=== PATIENT | female | born 1980 | race American Indian/Alaskan Native ===

== ENCOUNTER 2019-05-25 10:23 | Observation (INO) | payer MEDICAID ==
[2019-05-23 09:39] LABS: Basophils # (Auto) 0.1 K/mm3 (0.0-0.1); Basophils % (Auto) 1.5 % (0.0-1.8); Eosinophils # (Auto) 0.1 K/mm3 (0.0-0.4); Eosinophils % (Auto) 2.3 % (0.0-4.3); Hematocrit 37.4 % (30.3-42.9); Hemoglobin 12.5 gm/dl (10.1-14.3); Lymphocytes # (Auto) 2.2 K/mm3 (1.2-5.4); Lymphocytes % (Auto) 37.6 % (13.4-35.0); Mean Corpuscular HGB Conc 34 % (30-34); Mean Corpuscular Volume 85 fl (79-97); Monocytes # (Auto) 0.5 K/mm3 (0.0-0.8); Monocytes % (Auto) 8.8 % (0.0-7.3); Platelet Count 300 K/mm3 (140-440); Red Blood Count 4.42 M/mm3 (3.65-5.03); Red Cell Distribution Width 13.1 % (13.2-15.2)
--- NOTE | 2019-05-23 09:48 | Anesthesia Consultation ---
Anesthesia Consult and Med Hx Date of service: 05/23/19 - Airway Anesthetic Teeth Evaluation: Good ROM Head & Neck: Adequate Mental/Hyoid Distance: Adequate Mallampati Class: Class II Intubation Access Assessment: Good - Pulmonary Exam CTA: Yes - Cardiac Exam Cardiac Exam: RRR - Pre-Operative Health Status ASA Pre-Surgery Classification: ASA2 Proposed Anesthetic Plan: General Nerve Block: TAP Block - Pulmonary Hx Smoking: Yes - Central Nervous System Hx Psychiatric Problems: No - Other Systems Hx Cancer: No - Additional Comments Anesthesia Medical History Comments: Smoker , GERD for GA
[~2019-05-25 10:23] MED LIST: CELECOXIB 200 MG CAP PO NR; GABAPENTIN 300 MG CAP PO NR; MIDAZOLAM 2 MG/2 ML INJ IV NR; fentaNYL 100 MCG/2 ML INJ IV NR
[2019-05-25] MEDS: LACTATED RINGERS 1,000 ML IV SCH ×2 (11:05→20:50)
[2019-05-25] MEDS ORDERED: CELECOXIB 200 MG CAP PO NR (11:15)
[2019-05-25] MEDS ORDERED: fentaNYL 100 MCG/2 ML INJ IV NR (11:15)
[2019-05-25] MEDS ORDERED: GABAPENTIN 300 MG CAP PO NR (11:15)
[2019-05-25] MEDS ORDERED: MIDAZOLAM 2 MG/2 ML INJ IV NR (11:15)
--- NOTE | 2019-05-25 11:16 | Anesthesia Day of Surgery ---
Anesthesia Day of Surgery - Day of Surgery Patient Examined: Yes Patient H&P Reviewed: Yes Patient is NPO: Yes
[2019-05-25] MEDS ORDERED: BUPIVACAINE-EPINEPHRINE/PF 0.5%-1:200,000 (30 ML) VIAL INFILTRATI ONE (11:20)
[2019-05-25] MEDS ORDERED: MIDAZOLAM 2 MG/2 ML INJ ONE ×2 (11:25→12:14)
[2019-05-25] MEDS ORDERED: fentaNYL 100 MCG/2 ML INJ ONE (12:14)
[2019-05-25] MEDS ORDERED: LIDOCAINE MPF (2%) 20 MG/1 ML VIAL 5 ML ONE (12:14)
[2019-05-25] MEDS ORDERED: ROCURONIUM 50 MG/5 ML INJ IV ONE (12:14)
[2019-05-25] MEDS ORDERED: PROPOFOL 200 MG/20 ML VIAL IV ONE (12:15)
[2019-05-25] MEDS ORDERED: GLYCOPYRROLATE 0.4 MG/2 ML INJ ONE (12:25)
[2019-05-25] MEDS ORDERED: NEOSTIGMINE 10MG/10 ML INJ MDV ONE (12:25)
[2019-05-25] MEDS ORDERED: METOCLOPRAMIDE 10 MG/2 ML INJ ONE (12:25)
[2019-05-25] MEDS ORDERED: KETOROLAC 30 MG/1 ML INJ ONE (12:25)
[2019-05-25] MEDS ORDERED: ONDANSETRON 4 MG/2 ML INJ ONE (12:25)
[2019-05-25] MEDS ORDERED: dexAMETHasone 20 MG/5 ML VIAL ONE (12:25)
[2019-05-25] MEDS ORDERED: NEOMY 40 MG/POLYMYXIN B 200,000 UNITS/ML (GU) AMPULE IR ONE ×2 (12:27→13:37)
[2019-05-25] MEDS ORDERED: ceFAZolin 1 GM VIAL ONE (12:57)
[2019-05-25] MEDS ORDERED: SODIUM CHLORIDE 0.9% 100 ML ONE (12:57)
[2019-05-25] MEDS ORDERED: HYDROmorphone 1 MG/1 ML INJ ONE (13:26)
[2019-05-25] MEDS ORDERED: SODIUM CHLORIDE 0.9% IRR 1,500 ML BOTTLE IR ONE (13:38)
[2019-05-25] MEDS ORDERED: SODIUM CHLORIDE 0.9% IRRIG SOLN 2000 ML IR ONE (13:39)
[2019-05-25] MEDS ORDERED: MEPERIDINE 25 MG/1 ML INJ ONE (16:34)
[2019-05-25] MEDS ORDERED: MEPERIDINE 25 MG/1 ML INJ IV PRN (16:34)
--- NOTE | 2019-05-25 16:52 | Post Operative Note ---
Date of procedure: 05/25/19 Pre-op diagnosis: Pelvic pain , menorrhagia Post-op diagnosis: same (plus possible endometriosis. Path pending.) Findings: Ant uterine fibroid vs generally globular uterus. Normal tubes and ovaries except for some adhesions around the left adnexa. Possible area of endometriotic lesion on the left uterosacral ligament. General abd survey otherwise WNL. Procedure: Robotic hysterectomy, bilateral salpingectomies, excisional peritoneal biopsy Patient taken to the operating room and prepped and draped in the usual fashion. Attention was first turned vaginally for placement of the V care uterine manipulator and the Martinez. The large V care cup was used. The uterus was sounded to 10 cm. Anchoring stitches on the anterior and posterior lips of the cervix were done with 0 Vicryl. The manipulator was placed successfully and without difficulty. Attention was then turned abdominally to the left upper quadrant where 2 fingerbreadths under the costal margin in the midclavicular line and 8 mm incision was made. Veres needle was successfully placed in the in the abdominal cavity and abdomen was appropriately insufflated with CO2 gas. Placement confirmed with the camera. Attention was then turned to placement of the bilateral 8 mm trochars which were placed around 2 fingerbreadths superior and medial to the ASIS on both sides. Both were placed under direct his visualization and done without difficulty. The 12 mm umbilical trocar site was then made and the trocar was also placed under direct visualization without difficulty. Patient was then placed in steep Trendelenburg. The robot was docked into the trocar sites. I broke scrub and proceeded to the [employer]. After the abdomen and pelvis was surveyed attention was first turned to the excisional peritoneal biopsy of the left uterosacral ligament. This is done using out Endo Carlos. The peritoneum around the left uterosacral ligament where there were a few lesion suspicion of endometriosis were excised. Good hemostasis was noted. Attention was then turned to the left adnexal region with the above-noted adhesions were lysed to improve visualization of the adnexa. Attention was first turned to the left side where the fallopian tube was resected from its mesenteric attachments using the vessel sealer. The uterosacral ligament was then clamped cauterized and cut with the vessel sealer. Dissection was then carried to the round ligament which was clamped cauterized and cut with the vessel sealer. This was then done on the right side in the exact same fashion with equal success and good hemostasis. At this point a bladder flap was created. The anterior colpotomy was then made at this point and the V care cup was visualized. The incision was then extended bilaterally. Attention was then turned posteriorly. The posterior peritoneal flap was then created bilaterally. Posterior colpotomy incision was made in the V care cup was visualized. This incision was then extended bilaterally. At this point the tissue on the left side was skeletonized to the uterine vasculature which was clamped cauterized and cut using the vessel sealer. This is then done on the right side in the same fashion. At this point the uterus blanched and the colpotomy was completed 360. At this point the uterus and the tubes were removed vaginally. The vaginal cuff was then reapproximated using a 0V lock running suture. The abdomen was desufflated and good hemostasis noted throughout. Abdomen reinsufflated and the pelvis was well irrigated. At this point Dolly was placed over all areas of dissection. Good hemostasis noted thr oughout. At this point the robot was undocked and I scrubbed back into the case. The vaginal cuff was inspected both visually and on palpation and good hemostasis was noted and good integrity of the vaginal cuff was noted. At this point attention was turned abdominally for closure of the 12 mm trocar site which was done using the Kaushal-Hi device. This done with 0 Vicryl. The other 3 trochars were removed after the abdomen was desufflated. All the trocar sites were closed using 4-0 Monocryl in a subcuticular fashion. Procedure concluded at this point. Patient tolerated the procedure well. COUNTS are correct. Patient taken recovery room in stable condition. Patient had clear urine and had good ureteral peristalsis both at the beginning of the case and at the end of the case. Anesthesia: GETA Surgeon: SANDI SKINNER Estimated blood loss: 50-100ml (100cc) Pathology: list (1) uterus, tubes, cervix. 2) peritoneal biopsy of uterosacral ligament) Specimen disposition: to lab Condition: stable Disposition: PACU
[2019-05-25] MEDS ORDERED: D5W/LACTATED RINGERS 1,000 ML IV SCH (17:00)
[2019-05-25] MEDS: oxyCODONE /ACETAMINOPHEN 5-325MG TAB PO PRN ×2 (17:40→23:31)
--- NOTE | 2019-05-25 20:33 | Post Anesthesia Evaluation ---
- Post Anesthesia Evaluation Patient Participated: Yes Airway Patent: Yes Stable Respiratory Function: Yes Nausea/Vomiting: No Temp > 96.8F: Yes Pain Manageable: Yes Adequeate Hydration: Yes Anesthesia Complications: No
[2019-05-25] MEDS: IBUPROFEN 600 MG TAB PO SCH (20:58)
[2019-05-26 05:20] LABS: Hematocrit 28.5 % (30.3-42.9); Hemoglobin 9.5 gm/dl (10.1-14.3)
[2019-05-26] MEDS: IBUPROFEN 600 MG TAB PO SCH ×4 (07:21→17:23)
[2019-05-26] MEDS: oxyCODONE /ACETAMINOPHEN 5-325MG TAB PO PRN ×2 (10:07→16:13)
--- NOTE | 2019-05-26 11:48 | Progress Note ---
Assessment and Plan - Patient Problems (1) S/P hysterectomy Current Visit: Yes Status: Acute Plan to address problem: Stable POD 1 except for mild anemia. She may also have a right vulvar hematoma. Will give ice for vulvar and repeat Hgn at 1300 to assure stability. IF stable, will d/c home with iron. RTO 2 weeks. Vulva hematoma precautions d/w pt. Subjective - Subjective Date of service: 05/26/19 Principal diagnosis: POD 1 s/p RAH Interval history: Positive OOB, positive void, positive flatus, positive reg diet. No F/C/N /V/SP/SOB. PT only notes vulvar swelling on the right but no VB noted. Objective - Vital Signs Vital Signs: Vital Signs - 12hr 05/26/19 05/26/19 05/26/19 00:54 04:56 09:45 Temperature 97.7 F 98.4 F 98 F Pulse Rate 65 64 83 Respiratory 20 18 18 Rate Blood Pressure 127/81 Blood Pressure 109/65 121/62 [Left] O2 Sat by Pulse 99 98 Oximetry - Exam Abdomen: Present: normal appearance, soft, tenderness (appropriate mild tend. No rebound or guarding. ) Vulva: left: normal (Right vulvar swollen. soft, no erythema. ) - Labs Labs: Abnormal Labs 05/23/19 05/26/19 09:15 04:40 Hgb 9.5 L D Hct 28.5 L D RDW 13.1 L Lymph % (Auto) 37.6 H [place] % (Auto) 8.8 H Laboratory Results - last 24 hr 05/25/19 05/26/19 11:05 04:40 Hgb 9.5 L D Hct 28.5 L D Blood Type O POSITIVE Antibody Screen Negative
[2019-05-26 14:44] LABS: Hematocrit 23.1 % (30.3-42.9); Hemoglobin 7.9 gm/dl (10.1-14.3)
[2019-05-26] MEDS: LACTATED RINGERS 1,000 ML IV SCH (16:14)
--- NOTE | 2019-05-26 16:33 | Cat Scan Report ---
CT abdomen pelvis wo con INDICATION / CLINICAL INFORMATION: r/o bleeding. TECHNIQUE: All CT scans at this location are performed using CT dose reduction for ALARA by means of automated e xposure control. COMPARISON: None available. FINDINGS: No acute findings on limited lower thoracic images. ABDOMEN: Postoperative subcutaneous and intraperitoneal gas. The gallbladder, liver, spleen, pancreas and kidneys are normal. No small bowel distention. Pelvis: High attenuation fluid is seen in the pelvis consistent with hemorrhage. Small gas bubble is identified within the urinary bladder most likely secondary to recent catheteriza tion. Urinary bladder is otherwise normal. No colon abnormalities are identified. Skeletal structures are not remarkable. IMPRESSION: 1. Moderate hypoattenuation pelvic fluid collection consistent with hemorrhage. Signer Name: Erick Billings MD Signed: 05/26/2019 4:29 PM Workstation Name: [id number]
--- NOTE | 2019-05-26 17:09 | Event Note ---
Date: 05/26/19 Hgn repeated and it dropped to 7.9. PT with no CP or SOB. PT is feeling more discomfort with movement though now and more nausea, florinda on the right. CT done and a moderate hemoperitoneum noted. Vitals- stable (see EMR charting) A/P- Pt with POD1 hemoperitoneum and dropping Hgn. As a result, pt consented for surgery. Will proceed with laparoscopy, possible laparotomy, and evacuation of hemoperitoneum. Pt fully consented. Risks, benefits, alternatives d/w pt. PT also agreeable to PRBCs if needed. All questions answered.
[2019-05-26] MEDS ORDERED: SODIUM CHLORIDE 0.9% 500 ML 500 ML IV NR (18:04)
[2019-05-26] MEDS ORDERED: BUPIVACAINE/PF (0.5%) 5 MG/1 ML 30 ML VIAL INFILTRATI ONE (18:22)
[2019-05-26] MEDS ORDERED: ROCURONIUM 50 MG/5 ML INJ IV ONE (18:33)
[2019-05-26] MEDS ORDERED: LIDOCAINE MPF (2%) 20 MG/1 ML VIAL 5 ML ONE (18:33)
[2019-05-26] MEDS ORDERED: SUCCINYLCHOLINE CHLORIDE 200 MG/10 ML INJ MDV ONE (18:33)
[2019-05-26] MEDS ORDERED: fentaNYL 100 MCG/2 ML INJ ONE (18:34)
[2019-05-26] MEDS ORDERED: PROPOFOL 200 MG/20 ML VIAL IV ONE (18:34)
[2019-05-26] MEDS ORDERED: MIDAZOLAM 2 MG/2 ML INJ ONE (18:34)
[2019-05-26] MEDS ORDERED: HYDROmorphone 1 MG/1 ML INJ IV PRN (18:47)
--- NOTE | 2019-05-26 18:47 | Anesthesia Day of Surgery ---
Anesthesia Day of Surgery - Day of Surgery Patient Examined: Yes Patient H&P Reviewed: Yes Patient is NPO: No (last meal 1300)
--- NOTE | 2019-05-26 18:47 | Anesthesia Consultation ---
Anesthesia Consult and Med Hx Date of service: 05/26/19 - Airway Anesthetic Teeth Evaluation: Good ROM Head & Neck: Adequate Mental/Hyoid Distance: Adequate Mallampati Class: Class II Intubation Access Assessment: Good (previous easy mask/easy intubation with MIL 2, 7.0 oETT) - Pulmonary Exam CTA: Yes - Cardiac Exam Cardiac Exam: RRR - Pre-Operative Health Status ASA Pre-Surgery Classification: ASA2, Emergency Proposed Anesthetic Plan: General - Pulmonary Hx Smoking: Yes Hx Respiratory Symptoms: No - Cardiovascular System Hx Hypertension: No - Central Nervous System CVA: No - Gastrointestinal Hx Gastroesophageal Reflux Disease: Yes - Endocrine Hx Renal Disease: No Hx Liver Disease: No Hx Insulin Dependent Diabetes: No Hx Non-Insulin Dependent Diabetes: No Hx Thyroid Disease: No - Hematic Hx Anemia: Yes - Other Systems Hx Obesity: No - Additional Comments Anesthesia Medical History Comments: POD 1 s/p robot hysterectomy now with hemoperitoneum. NPO since 1300. Significant drop in H/H. Crossmatch ordered for 2 units pRBCs.
[2019-05-26] MEDS ORDERED: SODIUM CHLORIDE 0.9% 1000 ML 1,000 ML ONE ×2 (18:56→21:14)
[2019-05-26] MEDS ORDERED: dexAMETHasone 20 MG/5 ML VIAL ONE (19:07)
[2019-05-26 20:03] LABS: Hematocrit 21.4 % (30.3-42.9); Hemoglobin 7.4 gm/dl (10.1-14.3)
[2019-05-26] MEDS ORDERED: NEOSTIGMINE 10MG/10 ML INJ MDV ONE (20:47)
[2019-05-26] MEDS ORDERED: GLYCOPYRROLATE 0.4 MG/2 ML INJ ONE (20:47)
[2019-05-26] MEDS ORDERED: ALBUTEROL 2.5 MG/3 ML NEBU IH ONE ×2 (21:14→21:32)
[2019-05-26] MEDS ORDERED: MEPERIDINE 25 MG/1 ML INJ ONE (21:20)
[2019-05-26] MEDS ORDERED: MEPERIDINE 25 MG/1 ML INJ IV PRN (21:32)
--- NOTE | 2019-05-26 21:51 | Post Anesthesia Evaluation ---
- Post Anesthesia Evaluation Patient Participated: Yes Airway Patent: Yes Stable Respiratory Function: Yes Nausea/Vomiting: No Temp > 96.8F: Yes Pain Manageable: Yes Adequeate Hydration: Yes Anesthesia Complications: No Other Comments: Albuterol neb given for coughing after extubation. Intraop H/H stable compared to previous. Will transfer to floor.
--- NOTE | 2019-05-26 23:45 | Post Operative Note ---
Date of procedure: 05/26/19 Pre-op diagnosis: hemoperitoneum Post-op diagnosis: same Findings: Pt had 350 mL of dark clotted blood suctioned out. There was no fresh blood noted and there was no bright red blood noted. There was no active bleeding noted at all. Just a collection of old clotted blood. The vaginal cuff was intact with no blood in the vagina. Procedure: Patient was taken to the operating room and prepped and draped usual fashion. The vagina was examined and the vaginal cuff was intact. No blood noted in the vagina. Attention was then turned to the abdomen and the left upper quadrant trocar site from yesterday was used. A Veress needle placed through that site and the abdomen was appropriately insufflated with CO2 gas. Veress needle removed and a 5 mm trocar placed. Placement confirmed with the camera. As noted above patient had clotted blood in the pelvis but there was no active bleeding noted. Second 5 mm trocar was placed in the left-sided abdominal trocar site from yesterday. Patient was placed in Trendelenburg and all the clotted blood that was noted was suctioned out. The abdomen and pelvis was thoroughly assessed and there was no active bleeding noted at all after the 350 mL of clotted blood was suctioned out. The pelvis was observed for at least 45 minutes with no active bleeding noted at all. During this time the abdomen was observed in both and insufflated and desufflated state. For 15 minutes the gas was completely turned off. The gas turned back on and that pelvis was reassessed and there was no new collection of blood that accumulated. During this period of observation a stat hemoglobin was also ordered. Her hemoglobin around 2:00 in the afternoon was 7.9 and repeat stat hemoglobin the OR around 8 PM was 7.4. As a result it seemed that the patient had some oozing that eventually clotted off and the active oozing that she had earlier in the day or yesterday has stopped. Patient was also still hemodynamically stable. Dolly was placed over the vaginal cuff and the adnexal regions bilaterally as was Surgicel on top of that. Procedure was concluded at this point. The abdomen was fully desufflated and the trocars were removed. Trocar sites reapproximated with 4-0 Monocryl subcuticular fashion. All instrument and lap counts were correct. Patient taken to recovery room in stable condition. Anesthesia: GETA Surgeon: SANDI SKINNER Estimated blood loss: other (Minimal EBL but 350cc of clotted blood suctioned out.) Pathology: none Condition: stable Disposition: PACU
[2019-05-27] MEDS: oxyCODONE /ACETAMINOPHEN 5-325MG TAB PO PRN ×3 (00:30→12:34)
[2019-05-27] MEDS: IBUPROFEN 600 MG TAB PO PRN ×2 (03:10→09:20)
[2019-05-27 05:28] LABS: Basophils % (Auto) 0.1 % (0.0-1.8); Hematocrit 23.7 % (30.3-42.9); Lymphocytes # (Auto) 0.8 K/mm3 (1.2-5.4); Lymphocytes % (Auto) 7.9 % (13.4-35.0); Mean Corpuscular HGB Conc 34 % (30-34); Mean Corpuscular Volume 85 fl (79-97); Monocytes # (Auto) 0.5 K/mm3 (0.0-0.8); Monocytes % (Auto) 4.9 % (0.0-7.3); Platelet Count 219 K/mm3 (140-440); Red Blood Count 2.78 M/mm3 (3.65-5.03); Red Cell Distribution Width 13.3 % (13.2-15.2)
--- NOTE | 2019-05-27 08:25 | Progress Note ---
Assessment and Plan - Patient Problems (1) S/P hysterectomy Current Visit: Yes Status: Acute Plan to address problem: Stable POD 2 s/p RAH and feeling much better s/p evacuation of peritoneal clots yesterday. Hgn has stabilized as well and is improved vs yesterday. Once pt tolerate po today, she can go home. RTO 2 weeks. (2) Blood loss anemia Current Visit: Yes Status: Acute Plan to address problem: Will send home with iron and colace. Subjective - Subjective Date of service: 05/27/19 Principal diagnosis: POD 2 s/p RAH, POD 1 s/p evacuation of hemoperitoneal clots Patient reports: appetite normal, voiding normally, pain well controlled, flatus, ambulating normally, no dizzy ambulation, no nauseated (Pt doing well and notes she feels better vs prior to the evacuation of her peritoneal clots last night. No anemic sxs.) Objective - Vital Signs Latest vital signs: Vital Signs Temp Pulse Resp BP BP BP Pulse Ox 05/27/19 05:48 97.9 F 73 16 125/66 98 05/27/19 02:40 98.5 F 70 18 124/64 100 05/27/19 01:19 98.0 F 71 18 118/69 99 05/26/19 23:30 97.8 F 69 16 136/73 100 05/26/19 22:00 98.0 F 86 16 115/73 97 05/26/19 21:45 90 15 126/71 100 05/26/19 21:35 83 16 111/76 100 05/26/19 21:30 88 18 117/67 100 05/26/19 21:25 92 H 16 125/71 100 05/26/19 21:20 97 H 17 135/77 100 05/26/19 21:15 98.5 F 110 H 13 140/77 100 05/26/19 16:45 97.9 F 72 18 128/79 05/26/19 13:25 56 L 20 116/60 05/26/19 09:45 98 F 83 18 121/62 Intake and Output 05/26/19 05/27/19 05/27/19 23:59 07:59 15:59 Intake Total 200 600 Output Total 1190 700 Balance -990 -100 Intake: IV 200 Oral 0 Intake, Free Water 600 Output: Urine 1190 700 Void 1000 700 Other: Total, Intake Amount 0 Total, Output Amount 100 500 # Voids Void 1 - Exam Abdomen: Present: normal appearance, soft, tenderness (appropriately tend) Vulva: left: normal (right vulva with no increase in swelling or tend vs yesterday. PT notes its slightly better) Incision: Present: normal, dry, intact, dressed - Labs Labs: Abnormal lab results 05/25/19 05/26/19 05/26/19 Range/Units 11:05 14:07 19:56 RBC (3.65-5.03) M/mm3 Hgb 7.9 L 7.4 L (10.1-14.3) gm/dl Hct 23.1 L 21.4 L (30.3-42.9) % Lymph % (Auto) (13.4-35.0) % Lymph # (1.2-5.4) K/mm3 Seg Neutrophils % (40.0-70.0) % Seg Neutrophils # (1.8-7.7) K/mm3 Crossmatch See Detail 05/27/19 Range/Units 04:09 RBC 2.78 L (3.65-5.03) M/mm3 Hgb 8.0 L (10.1-14.3) gm/dl Hct 23.7 L (30.3-42.9) % Lymph % (Auto) 7.9 L (13.4-35.0) % Lymph # 0.8 L (1.2-5.4) K/mm3 Seg Neutrophils % 87.1 H (40.0-70.0) % Seg Neutrophils # 8.8 H (1.8-7.7) K/mm3 Crossmatch
--- NOTE | 2019-05-27 08:33 | Discharge Summary ---
Providers - Providers Date of Admission: 05/25/19 16:15 Date of discharge: 05/27/19 Attending physician: SANDI SKINNER Hospitalization Reason for admission: other (Robotic hysterectomy) Procedure: other (robotic hysterectomy and peritoneal excisional biopsy) Procedure details: see OP report Other procedures: none (On POD 1, pt required a laparoscopic evacuation of hemoperitoneal clots.) Discharge diagnosis: other (stable POD 2) Hospital course: PT had anemia on POD1 and required laparoscopic evacuation of 350cc of hemoperitoneal clots. PT did well after that. Condition at discharge: Stable Disposition: DC-01 TO HOME OR SELFCARE - Discharge Diagnoses (1) S/P hysterectomy Status: Acute (2) Blood loss anemia Status: Acute Comment: PT sent home with iron. Hgn was 8 at time of d/c. Plan - Discharge Medications Prescriptions: Docusate Sodium [Colace] 100 mg PO BID PRN #60 capsule PRN Reason: Constipation Ferrous Sulfate [Ferrous Sulfate 324 MG] 324 mg PO QDAY #30 tablet. Ibuprofen [Motrin 600 MG tab] 600 mg PO Q6HR #30 tablet oxyCODONE /ACETAMINOPHEN [Percocet 5/325 mg] 1 tab PO Q6H PRN #30 tablet PRN Reason: Pain, Moderate (4-6) - Provider Discharge Summary Additional instructions: [] Smoking cessation referral if applicable(refer to patient education folder for contact #) [] Refer to [facility]'s [facility] Booklet Call your doctor immediately for: * Fever > 100.5 * Heavy vaginal bleeding ( >1 pad per hour) * Severe persistent headache * Shortness of breath * Reddened, hot, painful area to leg or breast * Drainage or odor from incision. * Keep incision clean and dry at all times and follow doctor's instructions regarding bathing/showering - Follow up plan Follow up: KRISTINA GARDINER [Other] - 7 Days SANDI SKINNER MD [Staff Physician] - 14 Days
[2019-05-27 09:37] VITALS: BP 115/62
== END 2019-05-27 12:45 | disposition home or self-care (01) ==
LOC: OR 10:23 → OB 16:15
PROVIDERS: ADMIT Obstetrics & Gynecology; ATTEND Obstetrics & Gynecology
DX: K66.1 Hemoperitoneum (principal); N92.0 Excessive and frequent menstruation with regular cycle; N94.10 Unspecified dyspareunia; D62 Acute posthemorrhagic anemia; R10.2 Pelvic and perineal pain; Z90.710 Acquired absence of both cervix and uterus
CPT/HCPCS: 36415; 58552; 64450; 74176; 84703; 85014; 85018; 85025; 86850; 86900; 86901; 86920; 88305; 88307; 96374; A4217; G0378; J0330; J0690; J1100; J1170; J1885; J2175; J2250; J2405; J2704; J2710; J2765; J3010; J7030; J7120; S2900